=== PATIENT | male | born 1990 | race African-American/Black ===

== ENCOUNTER 2017-12-03 06:56 | Emergency (ER) | payer OTHER ==
--- NOTE | 2017-12-03 07:24 | ED Physician Documentation ---
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 He has had an increase in his pain and last night was unable to sleep. He has been taking ibuprofen pills and placing it directly on his tooth that hurts. He has some heat and cold sensitivity. 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 He does have an appointment to see his dentist on the of this month. Review of Systems Constitutional: denies: Fever Eyes: denies: Decreased vision Ears: reports: Ear pain Nose: denies: Rhinorrhea / runny nose, Congestion Throat: reports: Dental pain / toothache Cardiac: denies: Chest pain / pressure Respiratory: denies: Dyspnea, Cough GI: denies: Abdominal Pain, Nausea, Vomiting : denies: Dysuria PD PAST MEDICAL HISTORY - Past Medical History Past Medical History: Yes - Past Surgical History Past Surgical History: No - Present Medications Home Medications: Ambulatory Orders Medication Instructions Recorded Confirmed Amoxicillin 875 mg PO BID #14 tablet 12/03/17 HYDROcod/ACETAM 5/325 [Jennings 5/325] 1 - 2 ea PO Q6H PRN #8 tablet 12/03/17 - Allergies Allergies/Adverse Reactions: Allergies Allergy/AdvReac Type Severity Reaction Status Date / Time No Known Drug Allergies Allergy Verified 12/03/17 07:08 - Social History Does the pt smoke?: Yes Smoking Status: Current every day smoker Does the pt drink ETOH?: Yes Does the pt have substance abuse?: No - Immunizations Immunizations are current?: Yes - POLST Patient has POLST: No PD ED PE NORMAL - Vitals Vital signs reviewed: Yes (tachy and hypertensive) - General General: Alert and oriented X 3, No acute distress, Well developed/nourished - HEENT HEENT: Atraumatic, PERRL, EOMI, Moist mucous membranes, Pharynx benign, Other ( There are multiple teeth missing and no extensive decay. The tooth in question is #12 and is without a hole or easily visible crack. 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 mechanic 2-12 intact, No motor deficit, No sensory deficit, Normal speech Eye Opening: Spontaneous Motor: Obeys Commands Verbal: Oriented GCS Score: 15 - Psych Psych: Normal mood, Normal affect PD ED PE EXPANDED - HEENT HEENT Visual: 1 - tenderness Results - Vitals Vitals: Vital Signs - 24 hr 12/03/17 07:01 Temperature 36.7 C Heart Rate 104 H Respiratory 18 Rate Blood Pressure 170/110 H O2 Saturation 100 Oxygen O2 Source Room air PD MEDICAL DECISION MAKING - ED course Complexity details: considered differential, d/w patient ED course: 27-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 He has been unable to sleep throughout the night last night and he is requesting SIQ. - Sepsis Event Vital Signs: Vital Signs - 24 hr 12/03/17 07:01 Temperature 36.7 C Heart Rate 104 H Respiratory 18 Rate Blood Pressure 170/110 H O2 Saturation 100 Oxygen O2 Source Room air Departure - Departure Disposition: 01 Home, Self Care Clinical Impression: Pain, dental Condition: Stable Instructions: ED Tooth Pain Follow-Up: LEEANN Quezada [Provider Group] Prescriptions: Amoxicillin 875 mg PO BID #14 tablet HYDROcod/ACETAM 5/325 [Jennings 5/325] 1 - 2 ea PO Q6H PRN #8 tablet PRN Reason: Pain Forms: Activity restrictions
[2017-12-03 07:51] VITALS: BP 155/104
== END 2017-12-03 07:50 | disposition home or self-care (01) ==
LOC: ED 06:56
DX: K08.89 Other specified disorders of teeth and supporting structures (principal); F17.200 Nicotine dependence, unspecified, uncomplicated
CPT/HCPCS: 99283

== ENCOUNTER 2018-05-08 12:39 | Emergency (ER) | payer OTHER ==
[2018-05-08 13:04] VITALS: BP 137/87
--- NOTE | 2018-05-08 15:29 | ED Physician Documentation ---
History of Present Illness - Stated complaint Stated Complaint: PAINFUL BM - Chief complaint Chief Complaint: General - History obtained from History obtained from: Patient - History of Present Illness Timing: How many days ago (3) Pain level max: 4 Pain level now: 3 - Additonal information Additional information: 27-year-old male presents to the emergency department complaining of pain with bowel movements for the past 3-4 days. Has not had similar symptoms previously. Has had some constipation. No blood in the stool. Nothing makes it better. Worse with trying to have a bowel movement. Review of Systems Constitutional: denies: Fever Respiratory: denies: Cough GI: denies: Abdominal Pain, Vomiting Skin: denies: Rash PD PAST MEDICAL HISTORY - Past Medical History Past Medical History: No - Past Surgical History Past Surgical History: No - Present Medications Home Medications: Ambulatory Orders Medication Instructions Recorded Confirmed Amoxicillin 875 mg PO BID #14 tablet 12/03/17 HYDROcod/ACETAM 5/325 [Scurry 5/325] 1 - 2 ea PO Q6H PRN #8 tablet 12/03/17 Hydrocortisone Acetate 25 mg RC Q8HR PRN #14 supp.rect 05/08/18 Polyethylene Glycol 3350 [Miralax] 17 gm PO DAILY PRN #1 bottle 05/08/18 - Allergies Allergies/Adverse Reactions: Allergies Allergy/AdvReac Type Severity Reaction Status Date / Time No Known Drug Allergies Allergy Verified 05/08/18 13:04 - Social History Does the pt smoke?: Yes Smoking Status: Current every day smoker Does the pt drink ETOH?: Yes Does the pt have substance abuse?: No - Immunizations Immunizations are current?: Yes - POLST Patient has POLST: No PD ED PE NORMAL - Vitals Vital signs reviewed: Yes - General General: Alert and oriented X 3, No acute distress, Well developed/nourished - Neck Neck: Supple, no meningeal sign - Cardiac Cardiac: RRR, Strong equal pulses - Respiratory Respiratory: No respiratory distress, Clear bilaterally - Abdomen Abdomen: Normal bowel sounds, Soft, Non tender, Non distended - Male Male : Other (Small 1 cm inflamed hemorrhoid. Normal color. No bleeding.) - Derm Derm: Warm and dry - Extremities Extremities: No deformity - Neuro Neuro: Alert and oriented X 3 - Psych Psych: Normal mood, Normal affect Results - Vitals Vitals: Vital Signs - 24 hr 05/08/18 13:02 Temperature 36.7 C Heart Rate 97 Respiratory 18 Rate Blood Pressure 137/87 H O2 Saturation 97 Oxygen O2 Source Room air PD MEDICAL DECISION MAKING - ED course Complexity details: considered differential, d/w patient ED course: 27-year-old male with a inflamed but not thrombosed hemorrhoid. Will use sitz baths and hydrocortisone. We will have him follow-up with his doctor for further care. Also placed on MiraLAX. Patient counseled regarding signs and symptoms for which I believe and urgent re-evaluation would be necessary. Patient with good understanding of and agreement to plan and is comfortable going home at this time This document was made in part using voice recognition software. While efforts are made to proofread this document, sound alike and grammatical errors may o ccur. Departure - Departure Disposition: 01 Home, Self Care Clinical Impression: Hemorrhoid Qualifiers: Hemorrhoid type: unspecified Qualified Code(s): K64.9 - Unspecified hemorrhoids Condition: Good Instructions: ED Hemorrhoids Follow-Up: your,doctor in 1 week [Other] Prescriptions: Hydrocortisone Acetate 25 mg RC Q8HR PRN #14 supp.rect PRN Reason: hemorrhoids Polyethylene Glycol 3350 [Miralax] 17 gm PO DAILY PRN #1 bottle PRN Reason: Constipation Comments: Return if you worsen. This should improve over the next few days. Warm sitz bath may help as well. Drink plenty of fluids.
== END 2018-05-08 16:05 | disposition home or self-care (01) ==
LOC: ED 12:39
DX: K64.9 Unspecified hemorrhoids (principal); F17.200 Nicotine dependence, unspecified, uncomplicated
CPT/HCPCS: 99283

== ENCOUNTER 2018-07-15 14:17 | Emergency (ER) | payer OTHER ==
[2018-07-15 15:30] LABS: BASOPHILS # (AUTO) 0.1 10^3/uL (0.0-0.1); BASOPHILS % (AUTO) 1.7 %; EOSINOPHILS # (AUTO) 0.1 10^3/uL (0.0-0.7); EOSINOPHILS % (AUTO) 3.1 %; HGB - HEMOGLOBIN 15.8 g/dL (14.0-18.0); LYMPHOCYTES # (AUTO) 1.3 10^3/uL (1.5-3.5); LYMPHOCYTES % (AUTO) 37.1 %; MEAN CORPUSCULAR HEMOGLOBIN 28.4 pg (27.0-31.0); MEAN CORPUSCULAR HGB CONC 32.5 g/dL (32.0-36.0); MEAN CORPUSCULAR VOLUME 87.4 fL (80.0-94.0); MEAN PLATELET VOLUME 7.3 fL (7.4-11.4); MONOCYTES # (AUTO) 0.5 10^3/uL (0.0-1.0); MONOCYTES % (AUTO) 13.8 %; NEUTROPHILS # (AUTO) 1.5 10^3/uL (1.5-6.6); NEUTROPHILS % (AUTO) 44.3 %; PLT - PLATELET COUNT 231 10^3/uL (130-450); RED BLOOD COUNT 5.57 10^6/uL (4.70-6.10); WHITE BLOOD COUNT 3.5 x10^3/uL (4.8-10.8)
[2018-07-15 15:35] LABS: ALBUMIN 4.4 g/dL (3.2-5.5); ALBUMIN/GLOBULIN RATIO 1.1 (1.0-2.2); BILIRUBIN,TOTAL 0.7 mg/dL (0.2-1.0); CALCIUM 9.2 mg/dL (8.5-10.3); CREATININE 0.8 mg/dL (0.6-1.2); TOTAL PROTEIN 8.3 g/dL (6.7-8.2)
[2018-07-15] MEDS ORDERED: ONDANSETRON ODT 4 MG TABLET TL STA (16:28)
--- NOTE | 2018-07-15 16:34 | ED Physician Documentation ---
PD HPI NVD - Stated complaint Stated Complaint: ABD PX - Chief complaint Chief Complaint: Abd Pain - History obtained from History obtained from: Patient, Family - History of Present Illness Timing - onset: How many days ago (2) Timing - duration: Days (2) Timing - details: Abrupt onset Pain level max: 4 Pain level now: 4 Associated symptoms: Abdominal pain (crampy, diffuse). No: Fever, Hematemesis, Melena Contributing factors: Sick contact, Bad food (possible bad indonesian food) Improved by: Vomiting Worsened by: Eating Similar symptoms before: Has not had sx before Recently seen: Not recently seen Review of Systems Constitutional: denies: Fever Nose: denies: Rhinorrhea / runny nose, Congestion GI: reports: Nausea, Vomiting Skin: denies: Rash Musculoskeletal: denies: Neck pain, Back pain Neurologic: denies: Headache PD PAST MEDICAL HISTORY - Past Medical History Past Medical History: No - Past Surgical History Past Surgical History: No - Present Medications Home Medications: Ambulatory Orders Medication Instructions Recorded Confirmed Ondansetron Odt [Zofran] 4 mg TL Q6H PRN #10 tablet 07/15/18 - Allergies Allergies/Adverse Reactions: Allergies Allergy/AdvReac Type Severity Reaction Status Date / Time shellfish derived Allergy Unknown Verified 07/15/18 14:33 - Social History Does the pt smoke?: Yes Smoking Status: Current every day smoker Does the pt drink ETOH?: Yes Does the pt have substance abuse?: No - Immunizations Immunizations are current?: Yes - POLST Patient has POLST: No PD ED PE NORMAL - Vitals Vital signs reviewed: Yes - General General: Alert and oriented X 3, No acute distress, Well developed/nourished - HEENT HEENT: Moist mucous membranes - Neck Neck: Supple, no meningeal sign - Cardiac Cardiac: RRR - Respiratory Respiratory: No respiratory distress, Clear bilaterally - Abdomen Abdomen: Soft, Non tender, Non distended - Derm Derm: Warm and dry - Neuro Neuro: Alert and oriented X 3 - Psych Psych: Normal mood, Normal affect Results - Vitals Vitals: Vital Signs - 24 hr 07/15/18 07/15/18 14:30 17:08 Temperature 37.3 C Heart Rate 89 78 Respiratory 20 18 Rate Blood Pressure 153/87 H 127/78 O2 Saturation 100 99 Oxygen O2 Source Room air - Labs Labs: Laboratory Tests 07/15/18 07/15/18 15:18 15:18 WBC 3.5 L RBC 5.57 Hgb 15.8 Hct 48.7 MCV 87.4 MCH 28.4 MCHC 32.5 RDW 14.0 Plt Count 231 MPV 7.3 L Neut # (Auto) 1.5 Lymph # (Auto) 1.3 L Randolph # (Auto) 0.5 Eos # (Auto) 0.1 Baso # (Auto) 0.1 Absolute Nucleated RBC 0.00 Nucleated RBC % 0.1 Sodium 136 Potassium 3.8 Chloride 99 L Carbon Dioxide 27 Anion Gap 10.0 BUN 6 Creatinine 0.8 Estimated GFR (MDRD) 143 Glucose 91 Calcium 9.2 Total Bilirubin 0.7 AST 44 H ALT 35 Alkaline Phosphatase 72 Total Protein 8.3 H Albumin 4.4 Globulin 3.9 Albumin/Globulin Ratio 1.1 Lipase 21 L PD MEDICAL DECISION MAKING - ED course Complexity details: reviewed results, considered differential, d/w patient, d/w family ED course: 27-year-old male with what appears to be a viral gastroenteritis. He is very well-appearing, nontoxic. No acute laboratory abnormalities. Will prescribe Zofran for home and follow-up with his doctor. Patient counseled regarding signs and symptoms for which I believe and urgent re-evaluation would be necessary. Patient with good understanding of and agreement to plan and is comfortable going home at this time This document was made in part using voice recognition software. While efforts are made to proofread this document, sound alike and grammatical errors may occur. Departure - Departure Disposition: 01 Home, Self Care Clinical Impression: Viral gastroenteritis Condition: Good Instructions: ED Gastroenteritis Viral Follow-Up: LEEANN Quezada [Provider Group] Prescriptions: Ondansetron Odt [Zofran] 4 mg TL Q6H PRN #10 tablet PRN Reason: Nausea / Vomiting Comments: Drink plenty of fluids and rest. Return if you worsen. Follow-up with your do ctor for further care. Forms: Activity restrictions Discharge Date/Time: 07/15/18 17:08
[2018-07-15 17:09] VITALS: BP 127/78
== END 2018-07-15 17:08 | disposition home or self-care (01) ==
LOC: ED 14:17
DX: A08.4 Viral intestinal infection, unspecified (principal); F17.200 Nicotine dependence, unspecified, uncomplicated
CPT/HCPCS: 36415; 80053; 83690; 85025; 99283; Q0162

== ENCOUNTER 2018-09-22 08:01 | Emergency (ER) | payer OTHER ==
[2018-09-22 08:06] VITALS: BP 146/79
[2018-09-22] MEDS ORDERED: DEXAMETHASONE 10 MG/ML VIAL PO STA (08:15)
[2018-09-22] MEDS ORDERED: CHERRY SYRUP 10 ML UDC PO ONE (08:15)
--- NOTE | 2018-09-22 08:18 | ED Physician Documentation ---
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 He lost his voice yesterday he has no swelling in the back of his throat that is difficult for him to swallow anything but liquids. He has not had this previously. He has developed a slight cough. Review of Systems Constitutional: reports: Fever, Chills Eyes: denies: Decreased vision Ears: denies: Ear pain Nose: reports: Rhinorrhea / runny nose, Congestion Throat: reports: Sore throat Cardiac: denies: Chest pain / pressure, Palpitations Respiratory: reports: Cough. denies: Dyspnea GI: denies: Abdominal Pain, Nausea, Vomiting : denies: Dysuria, Frequency PD PAST MEDICAL HISTORY - Past Medical History Cardiovascular: None Respiratory: None Neuro: None Endocrine/Autoimmune: None GI: None : None HEENT: None Psych: None Musculoskeletal: None Derm: None - Past Surgical History Past Surgical History: No - Present Medications Home Medications: Ambulatory Orders Medication Instructions Recorded Confirmed Amox/Clav 875/125 [Augmentin] 1 each PO Q12H #20 tablet 09/22/18 - Allergies Allergies/Adverse Reactions: Allergies Allergy/AdvReac Type Severity Reaction Status Date / Time shellfish derived Allergy Unknown Verified 09/22/18 08:06 - Social History Does the pt smoke?: Yes Smoking Status: Current every day smoker Does the pt drink ETOH?: Yes Does the pt have substance abuse?: No - Immunizations Immunizations are current?: Yes - POLST Patient has POLST: No PD ED PE NORMAL - Vitals Vital signs reviewed: Yes (hypertensive ) - General General: Alert and oriented X 3, Well developed/nourished, Other (voice is gone ) - HEENT HEENT: Atraumatic, PERRL, EOMI, Other (right TM obscured by cerumen left TM is inflamed with rounding of the landmarks. 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 keyliner 2-12 intact, No motor deficit, No sensory deficit, Normal speech Eye Opening: Spontaneous Motor: Obeys Commands Verbal: Oriented GCS Score: 15 - Psych Psych: Normal mood, Normal affect Results - Vitals Vitals: Vital Signs - 24 hr 09/22/18 08:05 Temperature 36.8 C Heart Rate 69 Respiratory 16 Rate Blood Pressure 146/79 H O2 Saturation 100 Oxygen O2 Source Room air - Labs Labs: Laboratory Tests 09/22/18 07:15 Group A Strep Rapid Negative PD MEDICAL DECISION MAKING - ED course Complexity details: considered differential, d/w patient, d/w family ED course: 27-year-old male with swollen cryptic tonsils and general swelling in the back of his pharynx also has evidence of otitis on exam. He is administered dexamethasone 10 mg orally and we will place him on some antibiotic pending his rapid strep screen. Departure - Departure Disposition: 01 Home, Self Care Clinical Impression: Acute tonsillitis Qualifiers: Pharyngitis/tonsillitis etiology: unspecified etiology Qualified Code(s): J03.90 - Acute tonsillitis, unspecified Condition: Stable Health Concerns: sore throat Plan of Treatment: reduce swelling and treat infection Care Goals: improved swallowing and resolution of symptoms Assessment: tonsillitis Instructions: ED Tonsillitis Follow-Up: LEEANN Quezada [Provider Group] Prescriptions: Amox/Clav 875/125 [Augmentin] 1 each PO Q12H #20 tablet Forms: Activity restrictions
== END 2018-09-22 08:48 | disposition home or self-care (01) ==
LOC: ED 08:01
DX: J03.90 Acute tonsillitis, unspecified (principal); H66.92 Otitis media, unspecified, left ear; H61.21 Impacted cerumen, right ear; F17.200 Nicotine dependence, unspecified, uncomplicated
CPT/HCPCS: 87070; 87430; 99283; A9270

== ENCOUNTER 2018-12-08 20:57 | Emergency (ER) | payer OTHER ==
[2018-12-08] MEDS ORDERED: KETOROLAC 60 MG/2 ML VIAL IM STA (21:25)
[2018-12-08] MEDS ORDERED: CYCLOBENZAPRINE 10 MG TABLET PO STA (21:25)
--- NOTE | 2018-12-08 21:29 | ED Physician Documentation ---
History of Present Illness - Stated complaint Stated Complaint: BK PX/ANKLE PX - Chief complaint Chief Complaint: Ext Problem - History obtained from History obtained from: Patient - History of Present Illness Timing: Yesterday Pain level max: 8 Pain level now: 6 - Additonal information Additional information: 28-year-old male states that he was playing basketball yesterday when he was elbowed in the back. He also came down on someone's foot with the left ankle. Both are worsening today. Took Tylenol this morning. No loss of bowel or bladder control. No fevers. No numbness or tingling. Does not use IV drugs. Worse with walking and better with rest. Review of Systems Constitutional: denies: Fever, Chills Cardiac: denies: Chest pain / pressure Respiratory: denies: Cough GI: denies: Vomiting : denies: Dysuria, Frequency, Hesitancy, Unable to Void, Incontinent Musculoskeletal: denies: Neck pain Neurologic: denies: Focal weakness, Numbness, Headache PD PAST MEDICAL HISTORY - Past Medical History Past Medical History: No Cardiovascular: None Respiratory: None Neuro: None Endocrine/Autoimmune: None GI: None : None HEENT: None Psych: None Musculoskeletal: None Derm: None - Past Surgical History Past Surgical History: No - Present Medications Home Medications: Ambulatory Orders Medication Instructions Recorded Confirmed Amox/Clav 875/125 [Augmentin] 1 each PO Q12H #20 tablet 09/22/18 Cyclobenzaprine [Flexeril] 10 mg PO TID PRN #20 tablet 12/08/18 Ibuprofen [Motrin] 800 mg PO Q8H PRN #30 tablet 12/08/18 - Allergies Allergies/Adverse Reactions: Allergies Allergy/AdvReac Type Severity Reaction Status Date / Time shellfish derived Allergy Unknown Verified 09/22/18 08:06 - Social History Does the pt smoke?: Yes Smoking Status: Current every day smoker Does the pt drink ETOH?: Yes Does the pt have substance abuse?: No - Immunizations Immunizations are current?: Yes - POLST Patient has POLST: No PD ED PE NORMAL - Vitals Vital signs reviewed: Yes - General General: Alert and oriented X 3, No acute distress, Well developed/nourished - HEENT HEENT: Moist mucous membranes - Neck Neck: Supple, no meningeal sign - Back Back: No spinal TTP (No midline tenderness to palpation. No step-off or deformity. Paraspinal spasm bilateral low lumbar, left greater than right.) - Derm Derm: Warm and dry - Extremities Extremities: Other (Left ankle tenderness to palpation over the lateral malleolus. Otherwise normal examination of the foot, ankle and proximal tibia and fibula. Neurovascularly intact) - Neuro Neuro: Alert and oriented X 3, No motor deficit, No sensory deficit, Other (Normal bilateral lower extremity patellar and ankle jerk reflexes. Normal great toe extension bilaterally. no saddle anesthesia) - Psych Psych: Normal mood, Normal affect Results - Vitals Vitals: Vital Signs - 24 hr 12/08/18 21:00 Temperature 36.4 C L Heart Rate 85 Respiratory 18 Rate Blood Pressure 150/90 H O2 Saturation 99 Oxygen O2 Source Room air - Rads (name of study) L ankle xray Radiology: Prelim report reviewed, EMP read contemporaneously, See rad report (Normal ankle radiography. ) PD MEDICAL DECISION MAKING - ED course Complexity details: reviewed results, re-evaluated patient, considered differential, d/w patient ED course: 28-year-old male with back spasms as well as a left ankle sprain. Negative x- ray. Ambulating well. Declines crutches. Will place on pain medication and muscle relaxants for home. No evidence of lumbar spine fracture, cauda equina or epidural abscess. Patient counseled regarding signs and symptoms for which I believe and urgent re-evaluation would be necessary. Patient with good understanding of and agreement to plan and is comfortable going home at this time This document was made in part using voice recognition software. While efforts are made to proofread this document, sound alike and grammatical errors may occur. Departure - Departure Disposition: 01 Home, Self Care Clinical Impression: Back spasm Left ankle sprain Qualifiers: Encounter type: initial encounter Involved ligament of ankle: unspecified ligament Qualified Code(s): S93.402A - Sprain of unspecified ligament of left ankle, initial encounter Condition: Good Instructions: ED Sprain Ankle W X Ray, ED Spasm Back No Trauma Follow-Up: your,doctor in 1 week [Other] Prescriptions: Cyclobenzaprine [Flexeril] 10 mg PO TID PRN #20 tablet PRN Reason: Spasms Ibuprofen [Motrin] 800 mg PO Q8H PRN #30 tablet PRN Reason: PAIN &/OR FEVER Comments: Your x-rays do not show any acute abnormalities today. This should improve over the next few days. Your back may still hurt for a week or so. Do not drive or operate heavy machinery while taking the Flexeril. Forms: Activity restrictions
--- NOTE | 2018-12-08 22:00 | XRAY Report ---
Reason: L ankle pain s/p basketball Procedure Date: 12/08/2018 Accession Number: [id number] / [id number] Procedure: XR - Ankle 3 View LT CPT Code: FULL RESULT: EXAM: LEFT ANKLE RADIOGRAPHY EXAM DATE: 12/08/2018 09:22 PM. CLINICAL HISTORY: Left ankle pain after basketball injury COMPARISON: None. TECHNIQUE: 3 views. FINDINGS: Bones: Normal. No fractures or bone lesions. Joints: Normal. No effusion. No subluxations. The ankle mortise is normally aligned. Soft Tissues: Normal. No soft tissue swelling. IMPRESSION: Normal ankle radiography. [facility]
[2018-12-08 22:28] VITALS: BP 145/99
== END 2018-12-08 22:28 | disposition home or self-care (01) ==
LOC: ED 20:57
DX: M62.830 Muscle spasm of back (principal); S93.402A Sprain of unspecified ligament of left ankle, initial encounter; X50.1XXA Overexertion from prolonged static or awkward postures, initial encounter; W50.0XXA Accidental hit or strike by another person, initial encounter; Y93.67 Activity, basketball; F17.200 Nicotine dependence, unspecified, uncomplicated
CPT/HCPCS: 73610; 96372; 99283; 99284; A9270

== ENCOUNTER 2019-04-18 23:29 | Emergency (ER) | payer OTHER ==
[2019-04-18 23:40] VITALS: BP 158/106
== END 2019-04-19 00:10 | disposition left against medical advice (07) ==
LOC: ED 23:29
DX: Z53.21 Procedure and treatment not carried out due to patient leaving prior to being seen by health care provider (principal)

== ENCOUNTER 2019-05-12 09:08 | Outpatient (CLI) | payer OTHER | END 2019-05-12 09:09 | disposition critical access hospital (66) | LOC: EMS 09:08 | PROVIDERS: ATTEND Surgery | DX: R07.9 Chest pain, unspecified (principal); R42 Dizziness and giddiness; R05 Cough | CPT/HCPCS: A0425; A0429 ==

== ENCOUNTER 2019-05-12 09:34 | Emergency (ER) | payer OTHER ==
[2019-05-12] MEDS ORDERED: SODIUM CHLORIDE 0.9% 1,000 ML IV ONE (10:28)
[2019-05-12] MEDS ORDERED: DEXAMETHASONE 10 MG/ML VIAL IVP STA (10:29)
[2019-05-12] MEDS ORDERED: BENZONATATE 100 MG CAPSULE PO STA (10:29)
[2019-05-12] MEDS ORDERED: KETOROLAC 30 MG/ML VIAL IVP STA (10:29)
[2019-05-12] MEDS ORDERED: cefTRIAXone 1 GM in SODIUM CHLORIDE 0.9% MINIBAG 100 ML IV STA (10:29)
--- NOTE | 2019-05-12 10:32 | ED Physician Documentation ---
PD HPI URI - Stated complaint Stated Complaint: CP - Chief complaint Chief Complaint: Resp - History obtained from History obtained from: Patient, Family - History of Present Illness Timing - onset: How many months ago (2) Timing duration: Months (2) Timing details: Gradual onset, Still present, Waxing and waning Associated symptoms: Fever, Ear pain, Nasal congestion, Rhinorrhea, Sore throat, Productive cough, Chest pain, Dyspnea Contributing factors: Sick contact, Travel Improves by: Rest, Medication Similar symptoms before: Diagnosis (Tonsilitis) Recently seen: Not recently seen - Additional information Additional information: 28-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 He did not seek medical attention for this. When he got home he felt very tired and did not feel like going in to see medical. He is continued developed a fever and cough today he is developed chest pain and rapid breathing. He developed hyperventilation syndrome and was coached on his breathing by the pin sorter and bagger and resolved his symptoms. He did take a single dose of Augmentin last week felt a bit better the next morning and then was worse again. He did not take further antibiotic. He has a prior history of significant pharyngitis that I have personally witnessed. He should have come to see us last week or seen someone on the boat last month. Review of Systems Constitutional: reports: Fever, Chills, Myalgias, Fatigue Eyes: denies: Decreased vision Ears: reports: Ear pain Nose: reports: Rhinorrhea / runny nose, Congestion Throat: reports: Sore throat Cardiac: reports: Chest pain / pressure, Palpitations. denies: Pedal edema, Calf pain Respiratory: reports: Cough GI: denies: Vomiting PD PAST MEDICAL HISTORY - Past Medical History Cardiovascular: None Respiratory: None Neuro: None Endocrine/Autoimmune: None GI: None : None HEENT: None Psych: None Musculoskeletal: None Derm: None - Past Surgical History Past Surgical History: No - Present Medications Home Medications: Ambulatory Orders Medication Instructions Recorded Confirmed Amox/Clav 875/125 [Augmentin] 1 each PO Q12H #20 tablet 05/12/19 - Allergies Allergies/Adverse Reactions: Allergies Allergy/AdvReac Type Severity Reaction Status Date / Time shellfish derived Allergy Unknown Verified 05/12/19 09:45 - Social History Does the pt smoke?: Yes Smoking Status: Current every day smoker Does the pt drink ETOH?: Yes Does the pt have substance abuse?: No - Immunizations Immunizations are current?: Yes - POLST Patient has POLST: No PD ED PE NORMAL - Vitals Vital signs reviewed: Yes (febrile tachycardic and hypertensive) - General General: Alert and oriented X 3, Well developed/nourished - HEENT HEENT: Atraumatic, PERRL, EOMI, Other (Right TM is markedly inflamed with rounding of the umbo the left is less inflamed but also with indistinct landma rks. The pharynx shows 3+ tonsils with exudate and marked swelling to the posterior pharynx.) - Neck Neck: Supple, no meningeal sign, No bony TTP - Cardiac Cardiac: RRR, No murmur - Respiratory Respiratory: No respiratory distress, Clear bilaterally - Abdomen Abdomen: Normal bowel sounds, Non distended, Other (The abdomen is firm and there is minimal tenderness the patient does say it is sore from coughing.) - Back Back: No CVA TTP - Derm Derm: Normal color, Warm and dry, No rash - Extremities Extremities: No deformity, No edema, No calf tenderness / cord - Neuro Neuro: Alert and oriented X 3, game engineer 2-12 intact, No motor deficit, No sensory deficit, Normal speech Eye Opening: Spontaneous Motor: Obeys Commands Verbal: Oriented GCS Score: 15 - Psych Psych: Normal mood, Normal affect Results - Vitals Vitals: Vital Signs - 24 hr 05/12/19 05/12/19 09:38 11:39 Temperature 37.7 C H Heart Rate 112 H 97 Respiratory 20 11 L Rate Blood Pressure 160/111 H 142/81 H O2 Saturation 100 98 Oxygen O2 Source Room air - EKG (time done) 0940 Rate: Rate (enter#) (102) Rhythm: Sinus tachycardia Ischemia: ST elevation c/w repol Compare to prior EKG: Old EKG unavailable Computer interpretation: Agree with computer - Labs Labs: Laboratory Tests 05/12/19 05/12/19 05/12/19 10:56 10:56 10:56 WBC 6.1 RBC 5.55 Hgb 15.8 Hct 48.9 MCV 88.1 MCH 28.5 MCHC 32.3 RDW 14.1 Plt Count 411 MPV 9.2 Neut # (Auto) 2.5 Lymph # (Auto) 2.8 [place] # (Auto) 0.5 Eos # (Auto) 0.2 Baso # (Auto) 0.1 Absolute Nucleated RBC 0.00 Nucleated RBC % 0.0 Sodium 143 Potassium 3.7 Chloride 101 Carbon Dioxide 26 Anion Gap 16.0 H BUN 5 L Creatinine 1.0 Estimated GFR (MDRD) 109 Glucose 90 Lactic Acid 3.0 H* Calcium 9.2 Total Bilirubin 0.4 AST 32 ALT 33 Alkaline Phosphatase 61 Troponin I High Sens Total Protein 8.8 H Albumin 4.6 Globulin 4.2 Albumin/Globulin Ratio 1.1 Lipase 30 Urine Color Urine Clarity Urine pH Ur Specific [facility] Urine Protein Urine Glucose (UA) Urine Ketones Urine Occult Blood Urine Nitrite Urine Bilirubin Urine Urobilinogen Ur Leukocyte Esterase Ur Microscopic Review Urine Culture Comments 05/12/19 05/12/19 10:56 12:20 WBC RBC Hgb Hct MCV MCH MCHC RDW Plt Count MPV Neut # (Auto) Lymph # (Auto) [place] # (Auto) Eos # (Auto) Baso # (Auto) Absolute Nucleated RBC Nucleated RBC % Sodium Potassium Chloride Carbon Dioxide Anion Gap BUN Creatinine Estimated GFR (MDRD) Glucose Lactic Acid Calcium Total Bilirubin AST ALT Alkaline Phosphatase Troponin I High Sens 6.2 Total Protein Albumin Globulin Albumin/Globulin Ratio Lipase Urine Color YELLOW Urine Clarity CLEAR Urine pH 6.0 Ur Specific [facility] 1.010 Urine Protein NEGATIVE Urine Glucose (UA) NEGATIVE Urine Ketones NEGATIVE Urine Occult Blood NEGATIVE Urine Nitrite NEGATIVE Urine Bilirubin NEGATIVE Urine Urobilinogen 0.2 (NORMAL) Ur Leukocyte Esterase NEGATIVE Ur Microscopic Review NOT INDICATED Urine Culture Comments NOT INDICATED - Rads (name of study) Chest Radiology: Prelim report reviewed (Impression normal two-view chest radiography.), EMP read indepedently, See rad report PD MEDICAL DECISION MAKING - ED course Complexity details: considered differential, d/w patient, d/w family ED course: 28-year-old male with recurrent tonsillopharyngitis and otitis appears ill today he is dehydrated and febrile with a significant infectious load and a lot of swelling to his posterior pharynx. He is administered intravenous dexamethasone saline Rocephin Toradol and oral Tessalon. The patient has good results with the treatment and feels that he is able to swallow. He has large cryptic tonsils and will likely have this issue happen to him repeatedly whenever he is over stressed or sleep deprived. I have recommended to him that when he begins to get symptoms he seek treatment sooner than he did this time. Departure - Departure Disposition: 01 Home, Self Care Clinical Impression: Acute tonsillitis Qualifiers: Pharyngitis/tonsillitis etiology: unspecified etiology Qualified Code(s): J03.90 - Acute tonsillitis, unspecified Otitis media Qualifiers: Otitis media type: suppurative Chronicity: acute Laterality: bilateral Recurrence: not specified as recurrent Spontaneous tympanic membrane rupture: without spontaneous rupture Qualified Code(s): H66.003 - Acute suppurative otitis media without spontaneous rupture of ear drum, bilateral Condition: Stable Instructions: ED Otitis Media Acute Adult, ED Tonsillitis Follow-Up: [facility] [Provider Group] Prescriptions: Amox/Clav 875/125 [Augmentin] 1 each PO Q12H #20 tablet Comments: Today you have again tonsillitis and cryptic tonsils. This will be an issue for you anytime you are overstressed or sleep deprived. Seek treatment earlier the next time that this happens. Forms: Activity restrictions
[2019-05-12 11:04] LABS: BASOPHILS # (AUTO) 0.1 10^3/uL (0.0-0.1); BASOPHILS % (AUTO) 0.8 %; EOSINOPHILS # (AUTO) 0.2 10^3/uL (0.0-0.7); EOSINOPHILS % (AUTO) 3.1 %; HGB - HEMOGLOBIN 15.8 g/dL (14.0-18.0); LYMPHOCYTES # (AUTO) 2.8 10^3/uL (1.5-3.5); LYMPHOCYTES % (AUTO) 46.8 %; MEAN CORPUSCULAR HEMOGLOBIN 28.5 pg (27.0-31.0); MEAN CORPUSCULAR HGB CONC 32.3 g/dL (32.0-36.0); MEAN CORPUSCULAR VOLUME 88.1 fL (80.0-94.0); MEAN PLATELET VOLUME 9.2 fL (7.4-11.4); MONOCYTES # (AUTO) 0.5 10^3/uL (0.0-1.0); MONOCYTES % (AUTO) 8.2 %; NEUTROPHILS # (AUTO) 2.5 10^3/uL (1.5-6.6); NEUTROPHILS % (AUTO) 40.6 %; PLT - PLATELET COUNT 411 10^3/uL (130-450); RED BLOOD COUNT 5.55 10^6/uL (4.70-6.10); RED CELL DISTRIBUTION WIDTH 14.1 % (12.0-15.0); WHITE BLOOD COUNT 6.1 x10^3/uL (4.8-10.8)
--- NOTE | 2019-05-12 11:06 | XRAY Report ---
Reason: chest pain cough soa Procedure Date: 05/12/2019 Accession Number: [id number] / [id number] Procedure: XR - Chest 2 View X-Ray CPT Code: 59079 Final Report FULL RESULT: EXAM: CHEST RADIOGRAPHY EXAM DATE: 05/12/2019 10:34 AM. CLINICAL HISTORY: Substernal chest pain for 1.5 hours. Cough. COMPARISON: None. TECHNIQUE: 2 views. FINDINGS: Lungs/Pleura: No focal opacities evident. No pleural effusion. No pneumothorax. Normal volumes. Mediastinum: Heart and mediastinal contours are unremarkable. Other: None. IMPRESSION: Normal 2-view chest radiography. RADIA
[2019-05-12 11:16] LABS: ALBUMIN 4.6 g/dL (3.2-5.5); ALBUMIN/GLOBULIN RATIO 1.1 (1.0-2.2); BILIRUBIN,TOTAL 0.4 mg/dL (0.2-1.0); CALCIUM 9.2 mg/dL (8.5-10.3); TOTAL PROTEIN 8.8 g/dL (6.7-8.2)
[2019-05-12 12:47] LABS: BILIRUBIN,URINE NEGATIVE (NEGATIVE); GLUCOSE, URINE (UA) NEGATIVE (NEGATIVE); KETONES,URINE (UA) NEGATIVE (NEGATIVE); LEUKOCYTE ESTERASE, URINE NEGATIVE (NEGATIVE); NITRITE,URINE NEGATIVE (NEGATIVE); OCCULT BLOOD,URINE NEGATIVE (NEGATIVE); PROTEIN,URINE NEGATIVE (NEGATIVE); UROBILINOGEN,URINE 0.2 (NORMAL) E.U./dL (NORMAL)
[2019-05-12 12:52] LABS: CLARITY,URINE CLEAR (CLEAR)
[2019-05-12 13:07] VITALS: BP 136/89
== END 2019-05-12 13:07 | disposition home or self-care (01) ==
LOC: EDUNIT# → ED 09:34
DX: J03.90 Acute tonsillitis, unspecified (principal); H66.003 Acute suppurative otitis media without spontaneous rupture of ear drum, bilateral; E86.0 Dehydration; F17.200 Nicotine dependence, unspecified, uncomplicated
CPT/HCPCS: 36415; 71046; 80053; 81003; 83605; 83690; 84484; 85025; 87040; 93005; 96365; 96375; 99284; A9270; 81001; 87086

== ENCOUNTER 2021-04-19 12:16 | Outpatient (CLI) | payer OTHER ==
--- NOTE | 2021-04-19 14:51 | XRAY Report ---
PROCEDURE: Chest 2 View X-Ray INDICATIONS: WALKING PNEUMONIA TECHNIQUE: 2 view(s) of the chest. COMPARISON: None. FINDINGS: Surgical changes and devices: None. Lungs and pleura: No pleural effusions or pneumothorax. Lungs are clear. Mediastinum: Mediastinal contours are normal. Heart size is normal. Bones and chest wall: No suspicious bony abnormalities. Soft tissues appear unremarkable. IMPRESSION: Chest without acute cardiopulmonary abnormalities. No focal consolidation seen. Reviewed by: Jordin Joseph MD on 04/19/2021 2:49 PM PST Approved by: Jordin Joseph MD on 04/19/2021 2:49 PM PST Station ID: [id number]
== END 2021-04-19 12:17 | disposition home or self-care (01) ==
LOC: DI.N 12:16
PROVIDERS: ATTEND Nurse Practitioner
DX: J18.9 Pneumonia, unspecified organism (principal)

== ENCOUNTER 2021-04-19 18:17 | Emergency (ER) | payer OTHER ==
--- NOTE | 2021-04-19 19:51 | ED Physician Documentation ---
History of Present Illness - Stated complaint Stated Complaint: COUGH/FATIGUE - Chief complaint Chief Complaint: Resp - History obtained from History obtained from: Patient - History of Present Illness Timing: How many days ago Pain level max: 4 Pain level now: 3 - Additonal information Additional information: Patient is a 30-year-old male who has been sick for the past 3 days. Cough, congestion, fever, body aches and headache. Has been vaccinated against Covid. Patient is active [employer]. He states he was seen at the walk-in clinic yesterday and diagnosed with "walking pneumonia". He was placed on azithromycin. He states while coughing today there was a small amount of blood in his sputum. This prompted the emergency department visit. Patient is currently feeling better. Has been exposed to Covid at work Review of Systems Ten Systems: 10 systems reviewed and negative Constitutional: reports: Fever Nose: reports: Rhinorrhea / runny nose, Congestion Throat: denies: Sore throat Cardiac: denies: Chest pain / pressure, Palpitations Respiratory: reports: Cough. denies: Dyspnea, Wheezing GI: denies: Abdominal Pain, Nausea, Vomiting, Diarrhea : denies: Dysuria Skin: denies: Rash Musculoskeletal: denies: Neck pain, Back pain Neurologic: denies: Headache PD PAST MEDICAL HISTORY - Past Medical History Cardiovascular: None Respiratory: None Neuro: None Endocrine/Autoimmune: None GI: None : None HEENT: None Psych: None Musculoskeletal: None Derm: None - Past Surgical History Past Surgical History: No - Present Medications Home Medications: Ambulatory Orders Medication Instructions Recorded Confirmed Azithromycin 250 mg PO DAILY 04/19/21 04/19/21 - Allergies Allergies/Adverse Reactions: Allergies Allergy/AdvReac Type Severity Reaction Status Date / Time shellfish derived Allergy Unknown Verified 04/19/21 18:38 - Social History Does the pt smoke?: Yes Smoking Status: Current every day smoker Does the pt drink ETOH?: Yes Does the pt have substance abuse?: No - Immunizations Immunizations are current?: Yes - POLST Patient has POLST: No PD ED PE NORMAL - Vitals Vital signs reviewed: Yes - General General: Alert and oriented X 3, No acute distress, Well developed/nourished - HEENT HEENT: PERRL, Moist mucous membranes - Neck Neck: Supple, no meningeal sign - Cardiac Cardiac: RRR, No murmur - Respiratory Respiratory: No respiratory distress, Clear bilaterally - Abdomen Abdomen: Soft, Non tender, Non distended - Derm Derm: Warm and dry, No rash - Neuro Neuro: Alert and oriented X 3 - Psych Psych: Normal mood, Normal affect Results - Vitals Vitals: Vital Signs - 24 hr 04/19/21 04/19/21 04/19/21 18:35 19:38 19:55 Temperature 36.4 C L Heart Rate 71 55 L Respiratory 22 16 15 Rate Blood Pressure 177/150 H O2 Saturation 99 99 04/19/21 19:59 Temperature Heart Rate Respiratory Rate Blood Pressure 139/100 H O2 Saturation Oxygen O2 Source Room air PD MEDICAL DECISION MAKING - ED course Complexity details: reviewed old records, considered differential, d/w patient ED course: The patient's chest x-ray was reviewed from the walk-in clinic. The report does not show any acute findings. The patient is well-appearing, nontoxic. Afebrile. No hypoxia. No respiratory distress. We will continue supportive care at home. The small amount of hemoptysis, light pink in color is likely secondary to shear forces from coughing. The patient does not have any evidence of pneumonia, he will stop the azithromycin. Patient counseled regarding signs and symptoms for which I believe and urgent re-evaluation would be necessary. Patient with good understanding of and agreement to plan and is comfortable going home at this time This document was made in part using voice recognition software. While efforts are made to proofread this document, sound alike and grammatical errors may occur. Departure - Departure Disposition: 01 Home, Self Care Clinical Impression: Viral URI Condition: Good Instructions: ED Viral Syndrome Follow-Up: [facility] [Provider Group] - As Needed Comments: Your Covid test should be back tomorrow or the next day. Please follow-up with your doctor as needed for further care. Return if you worsen. Drink plenty of fluids and rest. You can stop the azithromycin at home. Your x-ray yesterday did not show any pneumonia. You have a Covid test pending. You need to self quarantine until the result is done and negative. The results should be done in 24-48 hours. We will call with a positive result, the fastest way to get a negative result for confirmation though is to go to the hospital website at [email or web address], click on the [email or web address] tab and sign up for the patient portal. If any of your friends and/or family need to be tested, they can call the hospital at [phone] for an appointment to have their Covid test. Discharge Date/Time: 04/19/21 20:01
[2021-04-19 20:00] VITALS: BP 139/100
== END 2021-04-19 20:01 | disposition home or self-care (01) ==
LOC: ED 18:17
DX: U07.1 COVID-19 (principal); J06.9 Acute upper respiratory infection, unspecified; F17.200 Nicotine dependence, unspecified, uncomplicated
CPT/HCPCS: 99282; 99283